=== PATIENT | female | born 1975 | race Caucasian/White ===

== ENCOUNTER 2019-01-03 15:46 | Observation (INO) | payer OTHER ==
[~2019-01-03] VITALS: Ht 160 cm; Wt 99.8 kg
--- NOTE | ~2019-01-03 | H ---
[address] [address] HISTORY AND PHYSICAL Name: MARCUS GILL Room: [address] [place]#: [id number] Admission: 01/03/19 Attend Phys: Keyana Em MD Discharge: 01/03/19 Date of : [birth year] Report #: [id number] THIS REPORT FOR: //name// For History and Physical please refer to the surgical consultation note in the patient's medical record. By: 1454Medical Records Staff TOÑO /CHARLIE
[2019-01-03 15:54] VITALS: BP 207/117
[2019-01-03] MEDS ORDERED: PRILOSEC2.5 MG PO (15:57)
[2019-01-03 16:10] LABS: URINE BILIRUBIN NEGATIVE (Negative); URINE BLOOD NEGATIVE (Negative); URINE CLARITY CLEAR; URINE COLOR YELLOW; URINE GLUCOSE-RANDOM NEGATIVE (Negative); URINE KETONES TRACE (Negative); URINE LEUKOCYTES-REFLEX NEGATIVE (Negative); URINE NITRITE-REFLEX NEGATIVE (Negative); URINE PROTEIN NEGATIVE (Negative); URINE UROBILINOGEN 0.2 E.U./dl (0.2-1.0)
[2019-01-03 16:26] LABS: HEMATOCRIT 40.7 % (37.0-47.0); HEMOGLOBIN 14.2 gm/dL (12.0-15.0); MCH 29.2 pg (26.0-34.0); MCV 83.4 fL (80.0-100.0); MPV 9.5 fl. (7.2-11.1); NUCLEATED RBCS 0 /100WBC; PLATELET COUNT* 289 thou/uL (150-400); RBC 4.88 mil/uL (4.20-5.00); RDW-CV 13.1 % (10.5-14.5); WBC 8.8 thou/uL (4.0-11.0)
[2019-01-03 16:43] LABS: ABSOLUTE LYMPHOCYTES 0.7 thou/uL (0.8-5.3); ABSOLUTE MONOCYTES 0.7 thou/uL (0.0-1.2); ABSOLUTE NEUTROPHILS 7.4 thou/uL (1.6-8.1); ATYPICAL LYMPHS 2 %; PLATELET ESTIMATE ADEQUATE
[2019-01-03 16:44] LABS: ALBUMIN 3.8 g/dL (3.4-5.0); ALKALINE PHOSPHATASE 98 U/L (46-116); ANION GAP 11 mmol/L (7-16); BUN 6 mg/dL (7-18); CALCIUM 9.2 mg/dL (8.5-10.1); CHLORIDE 101 mmol/L (98-107); CO2 30 mmol/L (21-32); GLUCOSE 120 mg/dL (70-99); LIPASE 111 U/L (73-393); POTASSIUM 3.2 mmol/L (3.5-5.1); SGOT 35 U/L (15-37); SGPT 67 U/L (30-65); SODIUM 142 mmol/L (136-145); TOTAL PROTEIN 7.8 g/dL (6.4-8.2); TROPONIN-I LEVEL <0.06 ng/mL (<0.06)
[2019-01-03 19:31] VITALS: BP 151/79
[2019-01-03] MEDS ORDERED: ZOFRAN ODT4 MG PO (21:19)
[2019-01-03 21:38] VITALS: BP 151/79
[2019-01-03] MEDS ORDERED: NORCO 5-325 TA1 EACH PO (21:47)
--- NOTE | 2019-01-03 22:58 | NUR ---
PT ARRIVED ON UNIT AT 1930, ER EIGHT ARM OPERATOR CALLED AND NOTIFIED ME THAT PT WAS NOT ADMITTED TO AN ATTENDING AND TO CALL SURGERY TO SEE IF THEY WOULD BE HER ADMITING SERVICE. DR MOLINAD UP TO SEE PT D/C'D PT TO HOME WITH PLAN TO BE SEEN IN THE SURGICAL CLINIC IN THE MORNING.
--- NOTE | 2019-01-04 09:43 | EKG ---
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 : 1975 Requested By: Negra Zamudio Order Number: [id number] MD: Eugenio Ortega Measurements Intervals [place] Rate: 93 P: 61 MI: 177 QRS: -13 QRSD: 93 T: -8 QT: 358 QTc: 446 Interpretive Statements Sinus rhythm Left ventricular hypertrophy, by voltage Borderline T abnormalities, diffuse leads No previous ECG available for comparison Electronically Signed On 01-04-2019 9:43:19 CDT by Eugenio Ortega [email or web address] <ELECTRONICALLY SIGNED> By: Eugenio Ortega MD, FACC 01/04/19 0943 1642 1642 Eugenio Ortega MD, FAC /EPI
[2019-01-08] MEDS ORDERED: PRILOSEC 20 MG20 MG PO (10:52)
[2019-01-08] MEDS ORDERED: AMOXICILLIN875 MG PO (10:53)
== END 2019-01-03 22:00 | disposition home or self-care (01) ==
LOC: M.ERS 15:46 → M.3W 17:27 → M.TBA-ER 17:27 → M.3W 19:35
PROVIDERS: Physician Assistant; ADMIT Internal Medicine
DX: K80.20 Calculus of gallbladder without cholecystitis without obstruction (principal); R19.7 Diarrhea, unspecified; Z98.890 Other specified postprocedural states; Z79.899 Other long term (current) drug therapy

== ENCOUNTER → 2019-01-09 | Day surgery (SDC) | payer OTHER ==
[~2019-01-09] MED LIST: AMOXICILLIN875 MG PO; NORCO 5-325 TA1 EACH PO; PRILOSEC 20 MG20 MG PO; PRILOSEC2.5 MG PO; ZOFRAN ODT4 MG PO
--- NOTE | 2019-01-11 13:08 | PATH ---
[address] [address] PATHOLOGY RPT PROCEDURE Name: XIAO ESTEVEZ Room: [facility].#: [id number] Admission: 01/09/19 Date of : 77 Discharge: Report #: [id number] Path Case #: [id number] [facility] Accession Number: [id number] . 01 Material submitted: . gallbladder - GALLBLADDER . 01 Clinical history: . Chronic cholecystitis . 02 Diagnosis: Gallbladder: - Chronic and acute, erosive cholecystitis with prominent mural fibrosis, cholelithiasis and benign sentinel lymph node showing prominent follicular hyperplasia. (GIULIANA:pit 01/11/2019) QTP/01/11/2019 . 02 Electronically signed: . Roosevelt Griffin MD, Pathologist NPI- [id number] . 01 Gross description: . The specimen is received in formalin, labeled "Xiao Estevez, gallbladder", is a focally disrupted gallbladder measuring 7.2 cm in length and 3.0 cm in maximum diameter with a hemorrhagic-cabrera serosa. A 1.5 x 1.2 x 0.7 cm soft lymph node is identified near the gallbladder neck. The cystic duct is patent. The gallbladder lumen contains minimal bile and several multifaceted yellow-dark brown calculi measuring 4.3 x 3.0 x 1.0 cm in aggregate. The mucosa is hemorrhagic and trabeculaed. The wall is fibrous and ranges from 0.1 cm up to 0.8 cm in thickness. Transfusion Aide tissue is submitted in A1-A2. (A1 = cystic duct and lymph node and A2 = gallbladder). (SWS; 01/09/2019) SHS/SHS . 02 Pathologist provided ICD-10: K80.10 . 02 CPT . 272971 Specimen Comment: A courtesy copy of this report has been sent to Specimen Comment: [phone], . Specimen Comment: Report sent to / DR RIVERO Performed at: [address] [facility] [address], [place] [id number] MD Mark Wilson MD Phone: [phone] [place] [address] PATHOLOGY RPT PROCEDURE Name: XIAO ESTEVEZ Room: [facility]#: [id number] Admission: 01/09/19 Date of : 77 Discharge: Report #: [id number] Path Case #: [id number] Performed at: 02 [facility] [address], [place] [id number] MD Roosevelt Griffin MD Phone: [phone]
--- NOTE | 2019-01-16 10:48 | OP ---
[address] [address] OPERATIVE REPORT Name: MARCUS GILL Room: [facility].#: [id number] Admission: 01/09/19 Attend Phys: Didier Mccabe DO Discharge: Date of : 77 Report #: [id number] THIS REPORT FOR: //name// CC: Didier Thomas DICTATED BY: Jono Goddard DO DATE OF SERVICE: 01/09/2019 DICTATED BY: This is Dr. Jono Goddard dictating for Dr. Didier Mccabe. AGE: A 44-year-old female. PREOPERATIVE DIAGNOSES: Acute cholecystitis with cholelithiasis. POSTOPERATIVE DIAGNOSES: Acute cholecystitis with cholelithiasis. PRIMARY SURGEON: Didier Mccabe DO. YOUTH SERVICES SPECIALIST: Jono Goddard DO, PGY-2 and Carmel Lazo DO, PGY-4. OPERATION PERFORMED: Laparoscopic cholecystectomy with immunofluorescence. ANESTHESIA TYPE: General and local. ESTIMATED BLOOD LOSS: 20 mL. SPECIMEN REMOVED: Gallbladder. COMPLICATIONS: None. FINDINGS: Distended, acutely inflamed, edematous gallbladder with cholelithiasis, hydrops of gallbladder. IMPLANTS: One piece of Surgicel was placed on the liver bed. INDICATIONS FOR PROCEDURE: The patient is a pleasant 44-year-old female who initially presented to the Emergency Department with episodic intermittent right upper quadrant abdominal pain, worse with fried and fatty foods. The patient was subsequently discharged to follow up with Dr. Mccabe in the office with pain and nausea medications and antibiotics. The patient was again seen and examined in the office and recommended laparoscopic cholecystectomy. Her CT in the ED showed distended gallbladder with mild wall thickening and trace pericholecystic fluid as well as cholelithiasis. Recommended laparoscopic cholecystectomy as an outpatient. Fully informed and written consent was obtained[place] [address] OPERATIVE REPORT Name: BRIDGETMARCUS MAUREEN Room: [facility]#: [id number] Admission: 01/09/19 Attend Phys: Didier Mccabe, DO Discharge: Date of : 77 Report #: [id number] of procedure, alternatives, risks and possible complications discussed included, but not limited to bleeding; infection; postoperative pain; scarring; hernia; conversion to open procedure; bile leak; biloma; need for further surgery; injury to other abdominal organs mainly stomach, liver, bowel and bile ducts and anesthesia risks. The patient voiced understanding of these risks and agreed to proceed with surgery. OPERATIVE TECHNIQUE: The patient was again seen and examined in the preoperative holding and fully informed and written consent was obtained. Two grams of Ancef were given for preoperative antibiotics. The patient again voiced understanding of risks and possible complications. The patient was subsequently transferred to the operating room suite and placed on the operating table in the supine position. At this time, Anesthesia induced general anesthesia via endotracheal intubation and this was successful. Footboard was placed at the patient's feet. SCDs were placed to bilateral lower extremity calves. Grounding pad was placed in right lateral thigh. The patient's arms were placed on arm boards out at the sides. All joints and extremities were padded and protected. The patient was prepped and draped using standard sterile fashion. Time-out was performed prior to onset of procedure. Of note, immunofluorescence green dye had been given in the preoperative holding prior to being taken back. Again entering into the abdomen using open Sheila technique, an incision was made superior to the umbilicus. Dissection was carried down through the dermal and subcutaneous tissue using blunt and electrocautery dissection. Fascia was reached, scored with electrocautery, grasped with Kochers, elevated and further transected with electrocautery. Hemoperitoneum was then pierced using a hemostat. A 5-mm Sheila trocar was placed in the abdomen. Abdomen was insufflated first using low flow, then high flow. I began by placing a 0-degree 5-mm laparoscopic camera into the abdomen, noting no injury to the underlying structures upon entry into the abdomen. We next turned our attention to the right upper quadrant. There was noted to be a very distended, edematous-appearing gallbladder in the right upper quadrant. The patient was placed in the reverse Trendelenburg with left side down. An additional 5-mm trocar was placed in the epigastric region. Two additional 5-mm trocars were placed in the right upper quadrant. Gallbladder was then aspirated with a laparoscopic aspiration needle. Approximately 20-30 mL of clear bile was aspirated. Gallbladder was grasped with locking wavy grasper. This was elevated anteriorly and cephalad. Aditi's pouch was then grasped with a blunt grasper. I began with electrocautery on the lateral aspect of the gallbladder, taking down peritoneal and omental attachments. Immunofluorescence green dye was used to evaluate the bile ducts. There was noted to be a long cystic duct traversing alongside the common bile duct and common hepatic duct. Intraoperative pictures were obtained. Next, dissection was carried out circumferentially around the cystic duct. This was isolated. Cystic artery was noted to be just posterior to the cystic duct. [address] [address] OPERATIVE REPORT Name: MARCUS GILL Room: [facility]#: [id number] Admission: 01/09/19 Attend Phys: Didier Mccabe, DO Discharge: Date of : 77 Report #: [id number] This was also isolated using [place] grasper. A critical view of safety was obtained. Intraoperative pictures were taken. Two Hem-o-Willard clips were placed on the distal cystic duct and once proximal near the gallbladder. An additional Hem-o-Willard clip was placed distally and proximally on the cystic artery. These were then transected using laparoscopic scissors. Next, the gallbladder was resected off of the liver bed, gallbladder fossa using electrocautery and a suction laparoscopic body shop manager. Again, the clips on the duct and artery were evaluated using immunofluorescence and there was noted to be no leak or hemorrhage. Hemostasis was achieved on the liver bed using electrocautery. Right upper quadrant was copiously irrigated and suctioned. Gallbladder was placed in a 5-mm EndoCatch bag through the umbilical trocar. One piece of Surgicel was placed in the liver bed. The patient was placed back in the supine position. Abdomen was desufflated under direct visualization. The 5-mm trocars were removed. Once the abdomen was fully desufflated, the laparoscopic camera was removed as was the umbilical Sheila trocar. Fascial incision of the umbilical port site was extended superiorly to allow for passage of the EndoCatch bag and gallbladder that was full of stones. Once the gallbladder was removed, Kochers were again placed on the fascial edges and the fascia was closed in an interrupted [id number] fashion using 0 Vicryl. Next, a layered closure was then performed using 3-0 interrupted Vicryl of the subcutaneous and deep dermal layers. Skin was closed using a running 4-0 Monocryl in a subcuticular fashion. The additional 5-mm trocars were closed using a 4-0 Monocryl. Abdomen was cleansed using wet and dry lap. Sterile dressings were applied, Mastisol, Steri-Strips, Tegaderms, 4 x 4s and Medipore tape. A 0.5% Marcaine was used for local anesthetic prior to placement of dressings. The patient tolerated the procedure well, was extubated in the OR and transferred to PACU in stable condition after a brief recovery from anesthesia. PLAN: Discharge to home and follow up in the office with Dr. Mccabe in 1 week. <ELECTRONICALLY SIGNED> By: Didier Mccabe DO 01/16/19 1048 1039 [id number] Mccabe DO /nt
== END | disposition home or self-care (01) ==
LOC: M.SUR 06:12
DX: K80.12 Calculus of gallbladder with acute and chronic cholecystitis without obstruction (principal); K82.8 Other specified diseases of gallbladder; D36.0 Benign neoplasm of lymph nodes; Z79.899 Other long term (current) drug therapy; Z79.891 Long term (current) use of opiate analgesic; Z98.890 Other specified postprocedural states